=== PATIENT | male | born 1940 | race Caucasian/White ===

== ENCOUNTER → 2017-06-13 | Outpatient (CLI) | payer OTHER ==
[2017-06-13 12:38] LABS: ALT/SGPT 43 U/L (12-78); BLOOD UREA NITROGEN 18 mg/dl (7-18); BUN/CREATININE RATIO 14.2 (10-20); CALCIUM 9.1 mg/dl (8.5-10.1); CARBON DIOXIDE 29 mmol/L (21-32); CHLORIDE 104 mmol/L (98-107); CHOLESTEROL 105 mg/dl (0-200); GLUCOSE 97 mg/dl (70-99); POTASSIUM 4.1 mmol/L (3.5-5.1); SODIUM 139 mmol/L (136-145); TRIGLYCERIDES 78 mg/dl (0-150); VERY LOW DENSITY LIPOPROT CALC 16 mg/dl
[2017-06-13 12:45] LABS: ALB/GLOB RATIO 0.9 (0.9-2); ALKALINE PHOSPHATASE 59 U/L (45-117); AST/SGOT 29 U/L (15-37); CHOLESTEROL/HDL RATIO 2.3; HDL CHOLESTEROL 45 mg/dl; LDL CHOLESTEROL CALCULATED 44 mg/dl
== END | disposition home or self-care (01) ==
LOC: C.LABPVFM 10:04
PROVIDERS: ATTEND Family Medicine
DX: E78.5 Hyperlipidemia, unspecified (principal)

== ENCOUNTER 2018-05-11 10:16 | Inpatient (IN) | payer OTHER ==
[~2018-05-11] VITALS: Ht 172.7 cm; Wt 111.5 kg
[2018-05-11 10:51] LABS: BASO % 0.2 %; BASO ABS # 0.02 K/uL (0-0.2); EOS % 0.8 %; EOS ABS # 0.09 K/uL (0-0.5); HEMATOCRIT 45.2 % (42-52); HEMOGLOBIN 16.2 g/dL (14.0-18.0); IG# 0.12 K/uL (0.00-0.02); LYMPH % 8.9 %; LYMPH ABS # 1.02 K/uL (1.2-3.4); MEAN CELL VOLUME 90.6 fL (80-100); MEAN CORPUSCULAR HEMOGLOBIN 32.5 pg (25-34); MEAN CORPUSCULAR HGB CONC 35.8 g/dl (32-36); MONO % 7.3 %; MONO ABS # 0.84 K/uL (0.11-0.59); NEUT % 81.8 %; NEUT ABS # 9.43 K/uL (1.4-6.5); PLATELET COUNT 127 K/uL (130-400); RED CELL DISTRIBUTION WIDTH CV 13.1 % (11.5-14.5); RED CELL DISTRIBUTION WIDTH SD 43.1 fL (36.4-46.3); WHITE BLOOD COUNT 11.52 K/uL (4.8-10.8)
--- NOTE | 2018-05-11 10:59 | DIAGNOSTIC IMAGING REPORT ---
CHEST ONE VIEW PORTABLE CLINICAL HISTORY: CHEST PAIN dyspnea COMPARISON STUDY: No previous studies for comparison. FINDINGS: Mild cardiomegaly. Diaphragms smooth. Lungs are clear. IMPRESSION: Mild cardiomegaly. Otherwise negative study. The above report was generated using voice recognition software. It may contain grammatical, syntax or spelling errors. Electronically signed by: Roberto Cantor M.D. 05/11/2018 10:57 AM Dictated Date/Time: 05/11/2018 10:57 AM
[2018-05-11] MEDS ORDERED: ERGO2000 PO (11:11)
[2018-05-11] MEDS ORDERED: PRLSR20 PO (11:11)
[2018-05-11] MEDS ORDERED: LSN/10125 PO (11:11)
[2018-05-11] MEDS ORDERED: ATEN-173 PO (11:11)
[2018-05-11] MEDS ORDERED: PRAV20TA PO (11:11)
[2018-05-11] MEDS ORDERED: ASPI81TA28 PO (11:11)
[2018-05-11 11:28] LABS: CALCIUM 8.6 mg/dl (8.5-10.1); CREATININE 1.26 mg/dl (0.60-1.40); PHOSPHORUS 2.9 mg/dl (2.5-4.9); POTASSIUM 3.8 mmol/L (3.5-5.1); TOTAL PROTEIN 6.3 gm/dl (6.4-8.2)
[2018-05-11] MEDS ORDERED: MAGNESIUM SULFATE 1GM / D5W 1 GM BAG IV STA (11:53)
[2018-05-11] MEDS ORDERED: ASPIRIN 81 MG CHEW PO STA (12:46)
[2018-05-11 13:00] VITALS: O2SAT 95; Ht 172.7 cm; Wt 111.5 kg
[2018-05-11] MEDS ORDERED: CLOP1TAB5 PO (13:59)
[2018-05-11] MEDS ORDERED: MAGNESIUM HYDROXIDE SUSP 30 ML UDC PO PRN (14:00)
[2018-05-11] MEDS ORDERED: POLYETHYLENE (MIRALAX) 17 GM PACK PO PRN (14:00)
[2018-05-11] MEDS ORDERED: ALUMINUM/MAGNESIUM/SIMETH (MAALOX MAX) 30 ML UDC PO PRN (14:00)
[2018-05-11] MEDS ORDERED: ACETAMINOPHEN 325 MG TAB PO PRN (14:00)
[2018-05-11] MEDS ORDERED: ONDANSETRON INJ 2 MG/ML 2 ML VIAL IV PRN (14:00)
[2018-05-11] MEDS ORDERED: DILTIAZEM BOLUS / DRIP IV STA (14:02)
--- NOTE | 2018-05-11 14:16 | History and Physical ---
History & Physical Date & Time of Service: May 11, 2018 at 14:15 Chief Complaint: Cardiac Assessment Primary Care Physician: Dheeraj Kong M.D. History of Present Illness Source: patient Mr. Gamez is a 77 y/o male with PMHx of CAD S/P PCI x 3, Coronary Rupture/ Cardiac Arrest with Cath (2002), HTN, HLD, and GERD who presents to the ED from his PCP due to new onset A Flutter with RVR. Patient reports that his symptoms have been progressive over the past 1-2 weeks. He endorses SOB largely with exertion and extreme fatigue. He states he can only do small tasks before needing to stop to take a break. He has also noticed progressive b/l lower extremity edema and reporting his legs feeling like concrete and very heavy to try and walk. He states he noticed some chronic swelling but not this significant. He denies feelings of palpations or feeling like his heart was racing. He denies CP or dizziness/lightheadedness. At his PCP he was found to be in A Flutter and was transferred to the ED. He was given Diltiazem 15 mg x 1 dose enroute. His HR went from 140s to 90-100. He intermittently would go up to 120 after initiation. He is feeling well at rest. He reports he is currently being treating for possible clot in eye and stated his was on a blood thinner. Confirmed with his pharmacy with his permission that he was prescribed Plavix for this in addition to his ASA therapy. Past Medical/Surgical History 1. Atrial Flutter 2. CAD S/P PCI x 3 3. Coronary Rupture with Cath 4. Cardiac Arrest during Cath 5. HTN 6. HLD 7. GERD 8. S/P R Carotid Endarterectomy 9. S/P Cholecystectomy 10. Amaurosis fugax Family History Heart Disease Social History Smoking Status: Never Smoker Smokeless Tobacco Use: No Alcohol Use: none Drug Use: none Allergies Coded Allergies: No Known Allergies (Unverified , 05/11/18) Home Medications Scheduled Aspirin (Aspirin Ec), 162 MG PO DAILY Atenolol (Tenormin), 25 MG PO DAILY Clopidogrel Bisulfate (Plavix), 75 MG PO DAILY Ergocalciferol (Vitamin D), 2,000 UNITS PO DAILY Hctz/Lisinopril (Lisinopril/Hctz 10/12.5 Mg), 1 TAB PO DAILY Omeprazole (Prilosec), 20 MG PO DAILY Pravastatin (Pravachol ), 20 MG PO DAILY Review of Systems Constitutional: + weakness (generalized), + fatigue, No fever, No chills ENT: No nasal symptoms, No sore throat, No trouble swallowing Respiratory: + shortness of breath, + dyspnea on exertion, No cough Cardiovascular: No chest pain, No palpitations Abdomen: No pain, No nausea, No vomiting, No diarrhea, No constipation Musculoskeletal: + swelling (b/l lower extremities), No calf pain Genitourinary - Male: No dysuria Neurologic: No numbness/tingling Hematologic / Lymphatic: No abnormal bleeding/bruising Integumentary: No rash Physical Exam Vital Signs Date Time Temp Pulse Resp B/P (MAP) Pulse Ox O2 Delivery O2 Flow Rate FiO2 05/11/18 13:01 117 24 124/100 96 Nasal Cannula 2.0 05/11/18 12:01 99 17 150/97 95 Nasal Cannula 2.0 05/11/18 10:54 102 20 138/92 97 Nasal Cannula 2.0 05/11/18 10:31 93 Room Air 05/11/18 10:31 Nasal Cannula 2.0 05/11/18 10:26 104 22 94 05/11/18 10:23 108 05/11/18 10:22 37.3 104 18 128/91 93 Room Air 05/11/18 10:22 92 Room Air 05/11/18 10:20 128/91 General Appearance: WD/WN, no apparent distress Head: normocephalic, atraumatic Eyes: sclerae normal ENT: hearing grossly normal Neck: supple, no JVD, trachea midline Respiratory/Chest: no respiratory distress, no accessory muscle use, + crackles (minimal at bases b/l) Cardiovascular: no murmur, + tachycardia, + pertinent finding (regular rate) Abdomen/GI: normal bowel sounds, non tender, soft Extremities/Musculoskelatal: + swelling (1+ pitting more non-pitting) Neurologic/Psych: alert, oriented x 3 Skin: normal color, warm/dry Diagnostics Laboratory Results Results Past 24 Hours Test 05/11/18 10:27 05/11/18 13:59 Range/Units White Blood Count 11.52 4.8-10.8 K/uL Red Blood Count 4.99 4.7-6.1 M/uL Hemoglobin 16.2 14.0-18.0 g/dL Hematocrit 45.2 42-52 % Mean Corpuscular Volume 90.6 80-100 fL Mean Corpuscular Hemoglobin 32.5 25-34 pg Mean Corpuscular Hemoglobin Concent 35.8 32-36 g/dl Platelet Count 127 130-400 K/uL Mean Platelet Volume 10.0 7.4-10.4 fL Neutrophils (%) (Auto) 81.8 % Lymphocytes (%) (Auto) 8.9 % Monocytes (%) (Auto) 7.3 % Eosinophils (%) (Auto) 0.8 % Basophils (%) (Auto) 0.2 % Neutrophils # (Auto) 9.43 1.4-6.5 K/uL Lymphocytes # (Auto) 1.02 1.2-3.4 K/uL Monocytes # (Auto) 0.84 0.11-0.59 K/uL Eosinophils # (Auto) 0.09 0-0.5 K/uL Basophils # (Auto) 0.02 0-0.2 K/uL RDW Standard Deviation 43.1 36.4-46.3 fL RDW Coefficient of Variation 13.1 11.5-14.5 % Immature Granulocyte % (Auto) 1.0 % Immature Granulocyte # (Auto) 0.12 0.00-0.02 K/uL Prothrombin Time 10.6 9.0-12.0 SECONDS Prothromb Time International Ratio 1.0 0.9-1.1 Sodium Level 137 136-145 mmol/L Potassium Level 3.8 3.5-5.1 mmol/L Chloride Level 100 98-107 mmol/L Carbon Dioxide Level 32 21-32 mmol/L Anion Gap 5.0 3-11 mmol/L Blood Urea Nitrogen 19 7-18 mg/dl Creatinine 1.26 0.60-1.40 mg/dl Est Creatinine Clear Calc Drug Dose 63.7 ml/min Estimated GFR () 64.2 Estimated GFR (Non- 55.4 BUN/Creatinine Ratio 14.8 10-20 Random Glucose 106 70-99 mg/dl Calcium Level 8.6 8.5-10.1 mg/dl Phosphorus Level 2.9 2.5-4.9 mg/dl Magnesium Level 1.7 1.8-2.4 mg/dl Total Bilirubin 1.9 0.2-1 mg/dl Direct Bilirubin 0.4 0-0.2 mg/dl Aspartate Amino Transf (AST/SGOT) 23 15-37 U/L Alanine Aminotransferase (ALT/SGPT) 43 12-78 U/L Alkaline Phosphatase 48 45-117 U/L Troponin I 0.053 0-0.045 ng/ml Pro-B-Type Natriuretic Peptide 883 0-900 pg/ml Total Protein 6.3 6.4-8.2 gm/dl Albumin 3.0 3.4-5.0 gm/dl Lipase 69 73-393 U/L Chemistry Specimen Hemolysis Diagnostic Radiology CHEST ONE VIEW PORTABLE CLINICAL HISTORY: CHEST PAIN dyspnea COMPARISON STUDY: No previous studies for comparison. FINDINGS: Mild cardiomegaly. Diaphragms smooth. Lungs are clear. IMPRESSION: Mild cardiomegaly. Otherwise negative study. EKG Poor data quality, interpretation may be adversely affected Atrial flutter with 3:1 A-V conduction Inferior-posterior infarct , age undetermined Abnormal ECG No previous ECGs available Confirmed by Alfredo Grey ([id number]) on 05/11/2018 1:04:13 PM Impression Assessment and Plan Mr. Gamez is a 77 y/o male with PMHx of CAD S/P PCI x 3, Coronary Rupture/ Cardiac Arrest with Cath (2002), HTN, HLD, and GERD who presents to the ED from his PCP due to new onset A Flutter with RVR. New Onset Atrial Flutter with RVR: - HR with better control and largely asymptomatic at rest but very symptomatic with even minimal exertion - Currently utilizing Lopressor 25 mg Q6H for rate control - D/C Atenolol - Heparin gtt and bolus initiated - Obtain Echo - Consult cardiology - discussed with Dr. Wallis with plans as above - appreciate input B/L Lower Extremity Swelling: - U/S to assess for DVT - swelling may be multifactorial between venous insuffiency vs some CHF? - if DVT would be the cause luckily heparin gtt is currently in place CAD S/P PCI x 3 with HTN/HLD: - H/O coronary rupture with cardiac arrest due to this - Continue Plavix 75 mg daily and hold ASA 162 mg daily given heparin dose -- Apparently the Plavix is actually for a clot behind eye? retinal occlusion ? - Pravastatin 20 mg daily; Hold Atenolol and Lisinopril/HCTZ at this time but likely can resume at least Lisinopril/HCTZ if blood pressure can tolerate GERD: - Protonix 40 mg daily DVT Prophylaxis: Heparin Code Status: FULL RESUSCITATION Disposition: Can likely have NOAC and will need co-pay checked Advanced Directives Existing Living Will: No Existing Power of Storeroom Supervisor: No Resuscitation Status VTE Prophylaxis Will order VTE Prophylaxis: Yes Reviewed: Pt Seen/Exam by Me History Physician Psychologist Private Practice supervision Note: I interviewed and examined the patient. Discussed with PRESTON Zuñiga and agree with findings and plan as documented in the note. Any exceptions or clarifications are listed here: Patient presented with worsening shortness of breath and heavy feeling in his legs with significant aching in the bilateral lower extremities for 1-2 weeks. He is also noted increase swelling in the legs. He denies any chest pain or heart palpitations. He was found to be in rapid atrial flutter at his PCPs office and was sent by ambulance to the hospital. In the ambulance, he was treated with IV diltiazem, by the time he got to the ER, his rates were improved from the 160s down to the 120s. Other history reviewed as above. Reviewed his outpatient record-I cannot find notes from his electrification adviser, however his vascular surgeon reports suspected amaurosis fugax bilaterally. He was placed on Plavix in addition to his aspirin fairly recently. Patient also reports that he has been on chronic prednisone for at least a month as prescribed by his electrification adviser. He is unsure of the dose and for how long he has been taking it. His will call [facility] after she gets home to tell us the dose. Vitals reviewed Gen: AAOx3, NAD HEENT: anicteric sclerae, EOMI CV: Irregularly irregular no mgr nl S1S2 Pulm: Positive bibasilar crackles, otherwise clear Abd: +BS soft NT ND no masses or hernias Ext: 1+ pitting edema of the legs to the knees bilaterally, 2+ DP pulses Skin: no rashes, warm/dry Neuro: full strength throughout Initial troponin is mildly elevated, he is in atrial flutter with rates in the 130s with a 3-1 conduction block on ECG. ProBNP was not significantly elevated , chest x-ray with cardiomegaly Patient is a 77-year-old male with history as above, here with rapid atrial flutter new in onset, acute on chronic diastolic CHF, and elevated troponin which is likely secondary to myocardial demand ischemia in the setting of rapid atrial flutter. Acute on chronic diastolic CHF likely secondary to tachyarrhythmia. -Seen by cardiology and diltiazem drip was stopped, started on metoprolol 25 mg p.o. every 6 hours for rate control strategy -Started on heparin drip and patient is interested in going on Eliquis-will need cost check with case management before discharge -We will start him back on HCTZ but a higher dose than his home dose of 25 mg in the morning given his lower extremity edema-this should improve with rate control as well -Appreciate cardiology consultation -Trending troponin, no wall motion abnormalities on echocardiogram, consistent with myocardial demand ischemia Documented By: Marcy De Santiago
--- NOTE | 2018-05-11 14:30 | EMERGENCY ROOM VISIT NOTE ---
History Report prepared by Jo: Robyn Serrato Under the Supervision of: Dr. Lazaro Navas M.D. First contact with patient: 10:22 Chief Complaint: CARDIAC ASSESSMENT Stated Complaint: CARDIAC ASSESSMENT Nursing Triage Summary: Pt. went to [facility] today due to noticing increased swelling in his legs/ankles and pressure behind his eyes for a few days. He denies CP, he does have some SOB. 93 RA. He has noticed that he has trouble with exertion more often recently. History of Present Illness The patient is a 77 year old male who presents to the Emergency Room with complaints of persistent SOB starting 1-2 weeks ago. The patient presents to the ED by EMS. He went to a clinic today with leg swelling and was sent to the ED. His SOB worsened yesterday. He is normally not on oxygen. He is having cramping in his right leg. His feet have felt cold. He has had some headache. He denies any abdominal bloating. 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 His vision has been cloudy which is unchanged. He has a history of stents. He is not on a water pill. Source of History: patient Onset: 1-2 weeks ago Position: chest Quality: other (SOB) Timing: worsening Associated Symptoms: + headache Note: Pt reports leg pain and swelling. Review of Systems See HPI for pertinent positives and negatives. A total of ten systems were reviewed and were otherwise negative. Past Medical & Surgical Medical Problems: (1) Atrial flutter with rapid ventricular response Family History Noncontributory secondary to age Social History Marital Status: single Occupation Status: retired Current/Historical Medications Scheduled Aspirin (Aspirin Ec), 162 MG PO DAILY Atenolol (Tenormin), 25 MG PO DAILY Clopidogrel Bisulfate (Plavix), 75 MG PO DAILY Ergocalciferol (Vitamin D), 2,000 UNITS PO DAILY Hctz/Lisinopril (Lisinopril/Hctz 10/12.5 Mg), 1 TAB PO DAILY Omeprazole (Prilosec), 20 MG PO DAILY Pravastatin (Pravachol ), 20 MG PO DAILY Allergies Coded Allergies: No Known Allergies (Unverified , 05/11/18) Physical Exam Vital Signs Date Time Temp Pulse Resp B/P (MAP) Pulse Ox O2 Delivery O2 Flow Rate FiO2 05/11/18 13:57 106 24 145/96 96 Nasal Cannula 2.0 05/11/18 13:01 117 24 124/100 96 Nasal Cannula 2.0 05/11/18 13:00 95 Nasal Cannula 2.0 05/11/18 12:01 99 17 150/97 95 Nasal Cannula 2.0 05/11/18 10:54 102 20 138/92 97 Nasal Cannula 2.0 05/11/18 10:31 93 Room Air 05/11/18 10:31 Nasal Cannula 2.0 05/11/18 10:26 104 22 94 05/11/18 10:23 108 05/11/18 10:22 37.3 104 18 128/91 93 Room Air 05/11/18 10:22 92 Room Air 05/11/18 10:20 128/91 Physical Exam GENERAL: Awake, alert, fatigued-appearing, in no distress HENT: Normocephalic, atraumatic. Oropharynx unremarkable. Mucous membranes are dry. EYES: Normal conjunctiva. Sclera non-icteric. NECK: Supple. No nuchal rigidity. FROM. No JVD. RESPIRATORY: Diminished breath sounds throughout. CARDIAC: Tachycardic rate, regular rhythm. Extremities warm and well perfused. Pulses equal. ABDOMEN: Obese, but soft. Non-distended. No tenderness to palpation. No rebound or guarding. No masses. RECTAL: Deferred. MUSCULOSKELETAL: Chest examination reveals no tenderness. The back is symmetrical on inspection without obvious abnormality. There is no CVA tenderness to palpation. No joint edema. LOWER EXTREMITIES: Calves are equal size bilaterally and non-tender. Scant edema. No discoloration. NEURO: Normal sensorium. No sensory or motor deficits noted. SKIN: No rash or jaundice noted. Medical Decision & Procedures ER Provider Diagnostic Interpretation: Radiology results as stated below per my review and radiologist interpretation: CHEST ONE VIEW PORTABLE CLINICAL HISTORY: CHEST PAIN dyspnea COMPARISON STUDY: No previous studies for comparison. FINDINGS: Mild cardiomegaly. Diaphragms smooth. Lungs are clear. IMPRESSION: Mild cardiomegaly. Otherwise negative study. The above report was generated using voice recognition software. It may contain grammatical, syntax or spelling errors. Electronically signed by: Roberto Cantor M.D. 05/11/2018 10:57 AM Dictated Date/Time: 05/11/2018 10:57 AM Laboratory Results 7/20/18 10:27 Red Blood Count 4.99, Mean Corpuscular Volume 90.6, Mean Corpuscular Hemoglobin 32.5, Mean Corpuscular Hemoglobin Concent 35.8, Mean Platelet Volume 10.0, Neutrophils (%) (Auto) 81.8, Lymphocytes (%) (Auto) 8.9, Monocytes (%) (Auto) 7.3, Eosinophils (%) (Auto) 0.8, Basophils (%) (Auto) 0.2, Neutrophils # (Auto) 9.43, Lymphocytes # (Auto) 1.02, Monocytes # (Auto) 0.84, Eosinophils # (Auto) 0.09, Basophils # (Auto) 0.02 05/11/18 10:27 Test 05/11/18 10:27 White Blood Count 11.52 K/uL (4.8-10.8) Red Blood Count 4.99 M/uL (4.7-6.1) Hemoglobin 16.2 g/dL (14.0-18.0) Hematocrit 45.2 % (42-52) Mean Corpuscular Volume 90.6 fL (80-100) Mean Corpuscular Hemoglobin 32.5 pg (25-34) Mean Corpuscular Hemoglobin Concent 35.8 g/dl (32-36) Platelet Count 127 K/uL (130-400) Mean Platelet Volume 10.0 fL (7.4-10.4) Neutrophils (%) (Auto) 81.8 % Lymphocytes (%) (Auto) 8.9 % Monocytes (%) (Auto) 7.3 % Eosinophils (%) (Auto) 0.8 % Basophils (%) (Auto) 0.2 % Neutrophils # (Auto) 9.43 K/uL (1.4-6.5) Lymphocytes # (Auto) 1.02 K/uL (1.2-3.4) Monocytes # (Auto) 0.84 K/uL (0.11-0.59) Eosinophils # (Auto) 0.09 K/uL (0-0.5) Basophils # (Auto) 0.02 K/uL (0-0.2) RDW Standard Deviation 43.1 fL (36.4-46.3) RDW Coefficient of Variation 13.1 % (11.5-14.5) Immature Granulocyte % (Auto) 1.0 % Immature Granulocyte # (Auto) 0.12 K/uL (0.00-0.02) Prothrombin Time 10.6 SECONDS (9.0-12.0) Prothromb Time International Ratio 1.0 (0.9-1.1) Activated Partial Thromboplast Time 26.1 SECONDS (21.0-31.0) Partial Thromboplastin Ratio 1.0 Anion Gap 5.0 mmol/L (3-11) Est Creatinine Clear Calc Drug Dose 63.7 ml/min Estimated GFR () 64.2 Estimated GFR (Non- 55.4 BUN/Creatinine Ratio 14.8 (10-20) Calcium Level 8.6 mg/dl (8.5-10.1) Phosphorus Level 2.9 mg/dl (2.5-4.9) Magnesium Level 1.7 mg/dl (1.8-2.4) Total Bilirubin 1.9 mg/dl (0.2-1) Direct Bilirubin 0.4 mg/dl (0-0.2) Aspartate Amino Transf (AST/SGOT) 23 U/L (15-37) Alanine Aminotransferase (ALT/SGPT) 43 U/L (12-78) Alkaline Phosphatase 48 U/L (45-117) Pro-B-Type Natriuretic Peptide 883 pg/ml (0-900) Total Protein 6.3 gm/dl (6.4-8.2) Albumin 3.0 gm/dl (3.4-5.0) Lipase 69 U/L (73-393) Chemistry Specimen Hemolysis Laboratory results reviewed by me Medications Administered Medications (Trade) Dose Ordered Sig/[place] Route Start Time Stop Time Status Last Admin Dose Admin Magnesium Sulfate (Magnesium Sulfate 1gm / D5W) 2 gm NOW STAT IV 05/11/18 11:53 05/11/18 11:54 DC 05/11/18 12:00 2 GM Aspirin (Aspirin Chew) 162 mg NOW STAT PO 05/11/18 12:46 05/11/18 12:48 DC 05/11/18 12:59 162 MG ECG Per My Interpretation Indication: SOB/dyspnea Rate (beats per minute): 98 Rhythm: atrial flutter Findings: no acute ischemic change, other (normal axis) ED Course 1029: The patient was evaluated in room A12B. A complete history and physical exam was performed. 1248: I discussed the patient with MAGED Wiseman hospitalist - She will evaluate the patient for further treatment. 1255: Upon reexamination, the patient was resting comfortably. I discussed the test results and treatment plan with him. The patient will be evaluated for further management. Medical Decision I reviewed the patient's past medical history, medications, and the nursing notes as described above. Etiologies such as pneumonia, COPD, reactive airway disease, CHF, cardiac ischemia, pulmonary embolism, pneumothorax, musculoskeletal, infections, gastrointestinal, as well as others were entertained. The patient is a 77-year-old gentleman who presents emergency department from [facility] for evaluation of increasing dyspnea on exertion found to be a new a flutter by EMS in the 140s improved to 100s after diltiazem by EMS per hpi. On arrival the patient is fatigued appearing but no acute distress, afebrile stable vital signs. EKG demonstrates new a flutter 3:1 conduction without evidence of acute ischemia. Chest x-ray negative. WBC 11.5 nonspecific. Creatinine 1.26 without prior values for comparison. Magnesium 1.7, repleted. Troponin 0.53 again without prior values for comparison however given the patient's long-standing symptoms likely demand related to a flutter. Otherwise, BNP within normal limits. Given the patient's comorbidities in the setting of new onset a flutter with RVR with troponin elevation reasonable to admit the patient for further evaluation. I discussed with the patient that given his comorbidities and his new onset atrial flutter he should be anticoagulated. However, the patient reports that he is currently on a blood thinner but does not know which one. I reviewed his medications and there is no blood thinner listed. However, will defer decision for type of anticoagulation to admitting team. Patient agreeable for admission. Case was discussed with KIMBERLY Mayberry hospitalist, will will evaluate the patient for admission. Medication Reconcilliation Current Medication List: was personally reviewed by me Blood Pressure Screening Patient's blood pressure: Elevated blood pressure Referred to hospitalist Consults Time Called: 1246 Consulting Physician: MAGED Wiseman hospitalist Returned Call: 1248 I discussed the patient with her - She will evaluate the patient for further treatment. Impression Primary Impression: Atrial flutter Additional Impression: Elevated troponin Scribe Attestation The scribe's documentation has been prepared under my direction and personally reviewed by me in its entirety. I confirm that the note above accurately reflects all work, treatment, procedures, and medical decision making performed by me. Departure Information Dispostion Being Evaluated By Hospitalist Referrals Bharat Guerrero M.D. (PCP) Patient Instructions My [facility] Problem Qualifiers
[2018-05-11] MEDS ORDERED: HEPARIN 25000 UNIT/500 ML D5W ONE (14:37)
[2018-05-11] MEDS ORDERED: HEPARIN SOD (PORCINE) 1000 UNIT/ML 10 ML VIAL ONE (14:37)
[2018-05-11] MEDS ORDERED: METOPROLOL TARTRATE 1 MG/ML VIAL IV STA (15:09)
[2018-05-11] MEDS ORDERED: DILTIAZEM HCL INJ 125 MG in DEXTROSE 5% 100ML IV PRN (15:15)
[2018-05-11] MEDS ORDERED: DILTIAZEM HCL 5 MG/ML 5 ML VIAL BOLUS/OMNI IV SCH (15:15)
--- NOTE | 2018-05-11 15:40 | ECHOCARDIOGRAM REPORT ---
*NOTICE TO RECEIVING LIBERTARIAN AGENCY This information is strictly Confidential and protected under [place] law. [place] law prohibits you from making any further disclosure of this information unless further disclosure is expressly permitted by the written consent of the person to whom it pertains or is authorized by law. A general authorization for the release of medical or other information is not sufficient for this purpose. Hospital accepts no responsibility if the information is made available to any other person, INCLUDING THE PATIENT. Interpretation Summary * Name: LORIE CAMPBELL Study Date: 05/11/2018 02:25 PM BP: 145/96 mmHg * Patient Location: [facility] HR: 101 * : 1940 (M/d/yyyy) Gender: Male Height: 68 in * Age: 77 yrs Ethnicity: [place] Weight: 263 lb * Ordering Physician: Mary Alice Zuñiga * Referring Physician: Emerald Mauro * Performed By: Montse Borja RDCS * * Reason For Study: A-Flutter * BSA: 2.3 m2 * -- Conclusions -- * Normal LV chamber size with mild concentric LVH. * Normal LV systolic function, EF 55-60%. * No segmental left ventricular wall motion abnormalities are noted. * Grade II diastolic dysfunction. * Aortic valve sclerosis mild, without significant aortic valvular stenosis. Procedure Details * A complete two-dimensional transthoracic echocardiogram was performed (2D, M-mode, Doppler and color flow Doppler). Left Ventricle * The left ventricle is normal in size. * There is mild concentric left ventricular hypertrophy. * Ejection Fraction = 55-60%. * Left ventricular systolic function is normal. * No segmental left ventricular wall motion abnormalities are noted. * The left ventricular wall motion is normal. Right Ventricle * The right ventricular cavity size is normal (basal dimension <4.2 cm in right ventricular apical 4-chamber view). * The right ventricular systolic function is normal as assessed by tricuspid annular plane systolic excursion (TAPSE) (normal >1.5 cm). Atria * The left atrium is not well visualized. * Right atrium not well visualized. Mitral Valve * The mitral valve is normal in structure and function. Tricuspid Valve * The tricuspid valve is normal in structure and function. Aortic Valve * The aortic valve is trileaflet. * Aortic valve sclerosis mild, without significant aortic valvular stenosis. * There is no significant aortic regurgitation. Pulmonic Valve * The pulmonary valve is not well seen, but the Doppler examination is normal without significant regurgitation or stenosis. Great Vessels * The aortic root is normal size. Pericardium/Pleural * There is no pericardial effusion. Left Ventricular Diastolic Function * Diastolic dysfunction, Grade II (pseudonormalization pattern). MMode 2D Measurements and Calculations IVSd 0.98 cm LVIDd 3.5 cm LVIDs 2.5 cm LVPWd 0.93 cm IVS/LVPW 1.1 FS 28.8 % EDV(Teich) 50.3 ml ESV(Teich) 21.9 ml EF(Teich) 56.5 % EDV(cubed) 42.3 ml ESV(cubed) 15.3 ml EF(cubed) 63.9 % LV mass(C)d 96.3 grams LV mass(C)dI 41.9 grams/m\S\2 SV(Teich) 28.4 ml SI(Teich) 12.4 ml/m\S\2 SV(cubed) 27.0 ml SI(cubed) 11.8 ml/m\S\2 Ao root diam 3.5 cm Ao root area 9.9 cm\S\2 LVOT diam 2.0 cm LVOT area 3.2 cm\S\2 LVAd ap4 21.0 cm\S\2 LVLd ap4 6.3 cm EDV(MOD-sp4) 55.9 ml EDV(sp4-el) 59.2 ml LVAs ap4 13.4 cm\S\2 LVLs ap4 5.5 cm ESV(MOD-sp4) 27.3 ml ESV(sp4-el) 27.7 ml EF(MOD-sp4) 51.1 % EF(sp4-el) 53.2 % LVAd ap2 20.3 cm\S\2 LVLd ap2 6.7 cm EDV(MOD-sp2) 49.1 ml EDV(sp2-el) 51.6 ml LVAs ap2 11.9 cm\S\2 LVLs ap2 5.2 cm ESV(MOD-sp2) 23.2 ml ESV(sp2-el) 23.2 ml EF(MOD-sp2) 52.7 % EF(sp2-el) 55.1 % LVLd %diff 6.0 % EDV(MOD-bp) 54.3 ml LVLs %diff -5.59 % ESV(MOD-bp) 26.0 ml EF(MOD-bp) 52.1 % SV(MOD-sp4) 28.6 ml SI(MOD-sp4) 12.4 ml/m\S\2 SV(MOD-sp2) 25.9 ml SI(MOD-sp2) 11.3 ml/m\S\2 SV(MOD-bp) 28.3 ml SI(MOD-bp) 12.3 ml/m\S\2 SV(sp4-el) 31.5 ml SI(sp4-el) 13.7 ml/m\S\2 SV(sp2-el) 28.4 ml SI(sp2-el) 12.4 ml/m\S\2 Doppler Measurements and Calculations MV E max denny 102.5 cm/sec MV A max denny 38.3 cm/sec MV E/A 2.7 MV dec time 0.12 sec Ao V2 max 83.5 cm/sec Ao max PG 2.8 mmHg Ao max PG (full) 0.03 mmHg SAJAN(V,A) 3.2 cm\S\2 SAJAN(V,D) 3.2 cm\S\2 LV V1 max PG 2.8 mmHg LV V1 max 83.0 cm/sec PA V2 max 73.3 cm/sec PA max PG 2.2 mmHg PA acc slope 402.0 cm/sec\S\2 PA acc time 0.14 sec TR max denny 243.7 cm/sec PA pr(Accel) 14.4 mmHg
[2018-05-11 15:52] LABS: PTT PATIENT 26.1 SECONDS (21.0-31.0)
--- NOTE | 2018-05-11 16:14 | CARDIOLOGY CONSULTATION ---
DATE OF CONSULTATION: 05/11/2018 CONSULTATION REQUESTED BY: Mary Alice Zuñiga PA-C. REASON FOR CONSULTATION: New onset atrial flutter. HISTORY OF PRESENT ILLNESS: Mr. Gamez is a very pleasant 77-year-old gentleman who normally follows with Dr. Sullivan of our cardiology practice. He presented to [facility] on 05/11/2018 straight from his primary care physician's office today via EMS. The patient presented there with a complaint of shortness of breath for the last approximately a [id number] to 2 weeks, which he describes dyspnea on exertion. At the same time, he has been having bilateral lower extremity edema. When he presented to the clinic today, he was found to be in atrial fibrillation with rapid ventricular response and he was transferred to [facility] Emergency [facility]. Upon arrival, he was confirmed to be in atrial fibrillation and was given, I believe, IV Cardizem, his rates are now around 100, in 3:1 conduction. Currently, the patient states he is feeling much better now at rest. He states that for the last 2 weeks now, he has been dyspneic, but he has also been very, very tired and run down, just not having the energy to do much at all, but he denies experiencing any chest pain, palpitations, lightheadedness, dizziness, or syncope. He states that since he received medicine in the ER, he notices his strength level seemed to increase. PAST SURGICAL HISTORY: 1. PCI to the circumflex in 2002, complicated by cardiac arrest and coronary perforation. 2. Repeat cardiac catheterization in 2016, which revealed narrow caliber coronary arteries with a patent stent in the proximal circumflex and stent to the RCA with a chronic total occlusion of the RCA. 3. Colonoscopy. 4. Carotid endarterectomy. 5. Cholecystectomy. 6. Tonsillectomy as a child. MEDICAL ILLNESSES: 1. Coronary artery disease. 2. History of cardiac arrest in the setting of coronary perforation during cardiac catheterization. 3. 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 4. Hypertension. 5. Hyperlipidemia. 6. Recent ocular CVA. 7. History of TIA. FAMILY HISTORY: Noncontributory. SOCIAL HISTORY: Denies any alcohol, tobacco or recreational drug use. He is and lives at home with his . He is retired. REVIEW OF SYSTEMS: As per HPI. All other review of systems reviewed and negative at this time. ALLERGIES: No known drug allergies. MEDICATIONS AN OUTPATIENT: 1. Aspirin 162 mg daily. 2. Plavix 75 mg daily. 3. Atenolol 25 mg daily. 4. Lisinopril/hydrochlorothiazide 10/12.5 mg daily. 5. Pravastatin 20 mg daily. 6. Omeprazole daily. PHYSICAL EXAMINATION: VITAL SIGNS: Temperature 37.3, pulse 106, respiratory rate 12, blood pressure 145/96. GENERAL: Awake, alert, oriented x3, in no acute distress. HEENT: Normocephalic, atraumatic. Pupils equal, round, and reactive to light and accommodation. Extraocular muscles intact. Anicteric sclerae. Moist mucous membranes. NECK: No JVD, no bruit. CARDIOVASCULAR: Regular, but fast. Unable to appreciate murmurs, rubs or gallops. PULMONARY: Clear to auscultation bilaterally. No rales, rhonchi, or wheezing. ABDOMEN: Bowel sounds x4, soft. No rebound, guarding, tenderness. No organomegaly. EXTREMITIES: Trace bilateral lower extremity nonpitting edema. No clubbing or cyanosis. +2 pedal pulses bilaterally. SKIN: Warm and dry. TEST RESULTS: A 12-lead EKG performed in the Emergency Department independently reviewed at this time shows atrial flutter with 3:1 AV conduction at 98 beats per minute. A 2D echocardiogram was read as normal LV chamber size with mild concentric LVH, normal LV systolic function, EF 55-60% without regional wall motion abnormalities, grade 2 diastolic dysfunction, mild aortic valve sclerosis without stenosis. Left atrium was not well visualized. IMPRESSION: 1. New onset atrial flutter with 3:1 conduction. 2. CHADS score of 4. 3. Hypertension. 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 5. Carotid stenosis, status post endarterectomy. RECOMMENDATIONS: It was my pleasure to see Mr. Gamez in consultation today. The patient is obviously experiencing symptomatic atrial flutter, and with his rate at 100 beats per minute, I believe it would be prudent to try and see if he can better rate control with beta veronique, so I will give him 5 mg of IV Lopressor now and start him on metoprolol tartrate 25 mg p.o. q. 6 hours. At the same time, a heparin drip will be started and given the fact that he has been in atrial flutter, likely for at least 2 weeks now. No antiarrhythmics will be started for fear of possible cardioversion and cardioembolic event. I did have a long discussion with the patient in terms of preferred long-term anticoagulation. He states that he believes at this time he preferred Eliquis over Coumadin, but again heparin will be started at this time to make sure he has no significant bleeding with full-dose anticoagulation first. Otherwise, the patient will be monitored on telemetry and consideration for rate versus rhythm control will be based on the patient's response to rate control therapy. Otherwise, in terms of his antiplatelet therapy, his aspirin will be discontinued, I will be continued on his Plavix along with full-dose anticoagulation.
[2018-05-11 16:20] VITALS: BP 123/84; PULSE 91; TEMP 36.4; O2SAT 93
[2018-05-11] MEDS: HEPARIN 25,000 UNIT/500ML D5W 500 ML IV SCH (16:30)
[2018-05-11 16:34] VITALS: O2SAT 96
[2018-05-11] MEDS ORDERED: NURSING VERBAL MED ORDER ONE (17:00)
[2018-05-11] MEDS: METOPROLOL TARTRATE 25 MG TAB PO SCH (17:44)
[2018-05-11 20:03] VITALS: BP 148/94; PULSE 104; TEMP 36.7; O2SAT 95
[2018-05-11] MEDS ORDERED: POTASSIUM CHLORIDE 20 MEQ TABCR PO ONE (21:00)
--- NOTE | 2018-05-11 22:11 | DIAGNOSTIC IMAGING REPORT ---
BILATERAL LOWER EXTREMITY VENOUS DOPPLER HISTORY: Bilateral lower extremity Pain/Swelling - R/O DVT COMPARISON STUDY: None. FINDINGS: There is normal compressibility, flow, and augmentation within the bilateral lower extremity deep venous systems. IMPRESSION: No DVT within the right or left lower extremity. Electronically signed by: Tramaine Payton M.D. 05/11/2018 10:09 PM Dictated Date/Time: 05/11/2018 10:09 PM
[2018-05-11 23:03] LABS: PTT PATIENT 93.3 SECONDS (21.0-31.0)
[2018-05-12 00:08] VITALS: BP 118/67; PULSE 109; TEMP 37.1; O2SAT 97
[2018-05-12] MEDS: METOPROLOL TARTRATE 25 MG TAB PO SCH ×4 (00:25→17:04)
[2018-05-12 03:40] VITALS: BP 114/72; PULSE 82; TEMP 36.9; O2SAT 93
[2018-05-12 06:16] LABS: HEMATOCRIT 44.1 % (42-52); HEMOGLOBIN 16.1 g/dL (14.0-18.0); MEAN CELL VOLUME 88.9 fL (80-100); MEAN CORPUSCULAR HEMOGLOBIN 32.5 pg (25-34); MEAN CORPUSCULAR HGB CONC 36.5 g/dl (32-36); PLATELET COUNT 118 K/uL (130-400); RED CELL DISTRIBUTION WIDTH CV 12.8 % (11.5-14.5); RED CELL DISTRIBUTION WIDTH SD 41.6 fL (36.4-46.3); WHITE BLOOD COUNT 9.78 K/uL (4.8-10.8)
[2018-05-12 06:36] LABS: PTT PATIENT 65.8 SECONDS (21.0-31.0)
[2018-05-12 06:47] LABS: CALCIUM 8.1 mg/dl (8.5-10.1); CREATININE 1.06 mg/dl (0.60-1.40)
[2018-05-12 06:54] VITALS: BP 136/83; PULSE 104; TEMP 36.4; O2SAT 94
[2018-05-12] MEDS: PANTOprazole SOD 40 MG TAB PO SCH (07:40)
[2018-05-12] MEDS: CLOPIDOGREL BISULFATE 75 MG TAB PO SCH (07:40)
[2018-05-12] MEDS: CHOLECALCIFEROL 1000 INTER.UNIT TAB PO SCH (07:40)
[2018-05-12] MEDS: PRAVASTATIN SOD 20 MG TAB PO SCH (07:40)
[2018-05-12] MEDS: HYDROCHLOROTHIAZIDE 25 MG TAB PO SCH (07:41)
[2018-05-12] MEDS: HEPARIN 25,000 UNIT/500ML D5W 500 ML IV SCH (09:19)
[2018-05-12] MEDS ORDERED: APIXABAN 2.5 MG TAB PO ONE (10:45)
--- NOTE | 2018-05-12 10:49 | Cardiology Follow-Up ---
Subjective Subjective Date of Service: May 12, 2018. Pt evaluation today including: conversation w/ patient, physical exam, chart review, lab review, review of studies, review of inpatient medication list Additional Details: The patient continues to be in atrial flutter. Previously options regarding long-term anticoagulation were presented to the patient along with the risks and benefits of anticoagulation. He would like to be started on Eliquis. Also , I discussed today immediate cardioversion with DON guidance versus waiting several weeks for a return electively to have a cardioversion. The patient is considering his options. Problem List Medical Problems: (1) Atrial flutter Status: Acute (2) Elevated troponin Status: Acute Objective Vital Signs Last Vital Signs Documentation Date Time Temp Pulse Resp B/P (MAP) Pulse Ox O2 Delivery O2 Flow Rate FiO2 05/12/18 07:30 Room Air 05/12/18 06:54 36.4 104 20 136/83 (100) 94 05/11/18 13:57 2.0 Physical Exam: General Appearance: WD/WN, no apparent distress ENT: normal ENT inspection Neck: supple, no adenopathy, thyroid normal Respiratory/Chest: chest non-tender, lungs clear, normal breath sounds, no respiratory distress Cardiovascular: no edema, no murmur, + irregularly irregular Abdomen: normal bowel sounds, non tender, soft Extremities: non-tender, normal inspection, no pedal edema Neurologic/Psychiatric: no motor/sensory deficits, alert, oriented x 3 Skin: normal color, warm/dry, no rash Lymphatic: no adenopathy Assessment and Plan IMPRESSION: 1. New onset atrial flutter with 3:1 conduction. 2. CHADS score of 4. 3. Hypertension. 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 5. Carotid stenosis, status post endarterectomy. Medications: Current Inpatient Medications Medications (Trade) Dose Ordered Sig/[place] Route Start Time Stop Time Status Last Admin Dose Admin Acetaminophen (Tylenol Tab) 650 mg Q4H PRN PO 05/11/18 14:00 06/10/18 13:59 Al Hydrox/Mg Hydrox/Simethicone (Maalox Max Susp) 15 ml Q4H PRN PO 05/11/18 14:00 06/10/18 13:59 Magnesium Hydroxide (Milk Of Magnesia Susp) 30 ml Q12H PRN PO 05/11/18 14:00 06/10/18 13:59 Ondansetron HCl (Zofran Inj) 4 mg Q6H PRN IV 05/11/18 14:00 06/10/18 13:59 Polyethylene (Miralax Powder Packet) 17 gm DAILY PRN PO 05/11/18 14:00 06/10/18 13:59 Clopidogrel Bisulfate (plAVix TAB) 75 mg DAILY PO 05/12/18 09:00 06/11/18 08:59 05/12/18 07:40 75 MG Pravastatin Sodium (Pravachol Tab) 20 mg DAILY PO 05/12/18 09:00 06/11/18 08:59 05/12/18 07:40 20 MG Cholecalciferol (Vitamin D Tab) 2,000 inter.unit DAILY PO 05/12/18 09:00 06/11/18 08:59 05/12/18 07:40 2,000 INTER.UNIT Pantoprazole Sodium (Protonix Tab) 40 mg QAM PO 05/12/18 09:00 06/11/18 08:59 05/12/18 07:40 40 MG Metoprolol Tartrate (Lopressor Tab) 25 mg Q6 PO 05/11/18 18:00 06/10/18 17:59 05/12/18 05:49 25 MG Heparin Sodium/ Dextrose 500 ml @ 28 mls/hr [id number] IV 05/11/18 15:30 06/10/18 15:29 05/12/18 09:19 28 MLS/HR Hydrochlorothiazide (Hydrochlorothiazide Tab) 25 mg QAM PO 05/12/18 09:00 06/11/18 08:59 05/12/18 07:41 25 MG Lab Results: Last 24 Hours Test 05/11/18 16:31 05/11/18 22:13 05/12/18 05:58 Troponin I 0.066 ng/ml 0.046 ng/ml Thyroid Stimulating Hormone (TSH) 1.060 uIu/ml Activated Partial Thromboplast Time 93.3 SECONDS 65.8 SECONDS Partial Thromboplastin Ratio 3.6 2.5 White Blood Count 9.78 K/uL Red Blood Count 4.96 M/uL Hemoglobin 16.1 g/dL Hematocrit 44.1 % Mean Corpuscular Volume 88.9 fL Mean Corpuscular Hemoglobin 32.5 pg Mean Corpuscular Hemoglobin Concent 36.5 g/dl RDW Standard Deviation 41.6 fL RDW Coefficient of Variation 12.8 % Platelet Count 118 K/uL Mean Platelet Volume 10.0 fL Sodium Level 135 mmol/L Potassium Level 4.0 mmol/L Chloride Level 101 mmol/L Carbon Dioxide Level 25 mmol/L Anion Gap 9.0 mmol/L Blood Urea Nitrogen 19 mg/dl Creatinine 1.06 mg/dl Est Creatinine Clear Calc Drug Dose 74.0 ml/min Estimated GFR () 79.2 Estimated GFR (Non- 68.3 BUN/Creatinine Ratio 18.1 Random Glucose 130 mg/dl Calcium Level 8.1 mg/dl Magnesium Level 2.1 mg/dl
[2018-05-12 16:12] VITALS: BP 125/92; PULSE 102; TEMP 36.8; O2SAT 94
[2018-05-12 19:33] VITALS: BP 128/82; PULSE 97; TEMP 37.2; O2SAT 99
[2018-05-12] MEDS: APIXABAN 2.5 MG TAB PO SCH (20:48)
[2018-05-12 23:38] VITALS: BP 130/90; PULSE 106; TEMP 36.8; O2SAT 93
[2018-05-13] MEDS: METOPROLOL TARTRATE 25 MG TAB PO SCH ×5 (00:51→21:38)
[2018-05-13 03:35] VITALS: BP 116/68; PULSE 99; TEMP 37; O2SAT 94
[2018-05-13 07:10] LABS: HEMATOCRIT 46.9 % (42-52); HEMOGLOBIN 16.4 g/dL (14.0-18.0); MEAN CORPUSCULAR HEMOGLOBIN 31.1 pg (25-34); MEAN PLATELET VOLUME 10.3 fL (7.4-10.4); PLATELET COUNT 130 K/uL (130-400); RED CELL DISTRIBUTION WIDTH CV 12.6 % (11.5-14.5); RED CELL DISTRIBUTION WIDTH SD 40.6 fL (36.4-46.3); WHITE BLOOD COUNT 9.42 K/uL (4.8-10.8)
[2018-05-13] MEDS: APIXABAN 2.5 MG TAB PO SCH ×2 (07:42→21:38)
[2018-05-13] MEDS: PRAVASTATIN SOD 20 MG TAB PO SCH (07:43)
[2018-05-13] MEDS: PANTOprazole SOD 40 MG TAB PO SCH (07:43)
[2018-05-13] MEDS: HYDROCHLOROTHIAZIDE 25 MG TAB PO SCH (07:43)
[2018-05-13] MEDS: CLOPIDOGREL BISULFATE 75 MG TAB PO SCH (07:43)
[2018-05-13] MEDS: CHOLECALCIFEROL 1000 INTER.UNIT TAB PO SCH (07:43)
[2018-05-13 07:51] LABS: CALCIUM 8.5 mg/dl (8.5-10.1); CREATININE 1.26 mg/dl (0.60-1.40)
--- NOTE | 2018-05-13 07:51 | Progress Note ---
Subjective Date of Service: May 12, 2018. Subjective Pt evaluation today including: conversation w/ patient, physical exam, chart review, lab review, review of studies (echo), review of inpatient medication list Pain: none PO Intake: normal Voiding: no voiding problems tele with improved rate control of a flutter overnight dyspnea and fatigue are much better he overall feels better he reports that he was seen by a Dr. 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 Lyles in [place] (ophtho) when asked if he was told he had temporal arteritis he reported he "didn't remember hearing that term" he never had temporal artery biopsy he was then sent to a Dr. Guadarrama in [place] (rheumatology??) but no formal diagnosis given at the time of this issue he never had headaches, jaw pain, etc Problem List Medical Problems: (1) Atrial flutter Status: Acute (2) Elevated troponin Status: Acute Review of Systems Constitutional: No fever Respiratory: No shortness of breath, No dyspnea on exertion Cardiac: No chest pain, No palpitations Objective Vital Signs Date Time Temp Pulse Resp B/P (MAP) Pulse Ox O2 Delivery O2 Flow Rate FiO2 05/12/18 19:33 37.2 97 18 128/82 (97) 99 05/12/18 16:12 36.8 102 18 125/92 (103) 94 05/12/18 07:30 Room Air 05/12/18 06:54 36.4 104 20 136/83 (100) 94 Room Air 05/12/18 04:00 Room Air 05/12/18 03:40 36.9 82 16 114/72 (86) 93 Room Air 05/12/18 00:08 37.1 109 20 118/67 (84) 97 Room Air Physical Exam General Appearance: no apparent distress, + obese ENT: pharynx normal Neck: no JVD Respiratory/Chest: lungs clear, no respiratory distress, no accessory muscle use Cardiovascular: regular rate, rhythm, no gallop, no murmur Abdomen: normal bowel sounds, non tender, soft, no organomegaly Extremities: no pedal edema Neurologic/Psychiatric: alert, oriented x 3 Laboratory Results Last 24 Hours Test 05/11/18 22:13 05/12/18 05:58 Activated Partial Thromboplast Time 93.3 SECONDS 65.8 SECONDS Partial Thromboplastin Ratio 3.6 2.5 Troponin I 0.046 ng/ml White Blood Count 9.78 K/uL Red Blood Count 4.96 M/uL Hemoglobin 16.1 g/dL Hematocrit 44.1 % Mean Corpuscular Volume 88.9 fL Mean Corpuscular Hemoglobin 32.5 pg Mean Corpuscular Hemoglobin Concent 36.5 g/dl RDW Standard Deviation 41.6 fL RDW Coefficient of Variation 12.8 % Platelet Count 118 K/uL Mean Platelet Volume 10.0 fL Sodium Level 135 mmol/L Potassium Level 4.0 mmol/L Chloride Level 101 mmol/L Carbon Dioxide Level 25 mmol/L Anion Gap 9.0 mmol/L Blood Urea Nitrogen 19 mg/dl Creatinine 1.06 mg/dl Est Creatinine Clear Calc Drug Dose 74.0 ml/min Estimated GFR () 79.2 Estimated GFR (Non- 68.3 BUN/Creatinine Ratio 18.1 Random Glucose 130 mg/dl Calcium Level 8.1 mg/dl Magnesium Level 2.1 mg/dl Assessment and Plan 77yo male - 1. a flutter, new onset, with RVR - improved with beta veronique. Agree with changing heparin to eliquis. Defer rate control to cardiology. Outpatient DON cardioversion in 4 weeks if still in a flutter? 2. acute/chronic diastolic CHF - acute component improved. 3. chronic prednisone use - for suspected temporal arteritis? I have requested records from [facility] in [place]. 4. positive troponin - myocardial demand ischemia in setting of #1, #2 above. No symptoms of ACS. 5. HTN - controlled with current meds. 6. CAD - cont BB, statin, plavix, etc. No ischemic sx's at this time. 7. hyperlipidemia - statin agent. 8. morbid obesity with BMI 37 9. PAD - carotid disease - s/p CEA on right - noted. progressing from a flutter standpoint Discharge planning: home
[2018-05-13 07:58] VITALS: BP 138/87; PULSE 92; O2SAT 92
[2018-05-13 11:57] VITALS: BP 115/72; PULSE 95; TEMP 36.9; O2SAT 94
--- NOTE | 2018-05-13 12:05 | Cardiology Follow-Up ---
Subjective Subjective Date of Service: May 13, 2018. Pt evaluation today including: conversation w/ patient, physical exam, chart review, lab review, review of studies, review of inpatient medication list Additional Details: The patient had an uneventful night. He continues to be in atrial fibrillation with controlled heart rate. I discussed options again with the patient. Early versus cardioversion after several weeks. He would like to proceed with a transesophageal echocardiogram and cardioversion before discharge. Problem List Medical Problems: (1) Atrial flutter Status: Acute (2) Elevated troponin Status: Acute Review of Systems Constitutional: No fever Respiratory: No shortness of breath, No dyspnea on exertion Cardiac: No chest pain, No palpitations Objective Vital Signs Last Vital Signs Documentation Date Time Temp Pulse Resp B/P (MAP) Pulse Ox O2 Delivery O2 Flow Rate FiO2 05/13/18 11:57 36.9 95 16 115/72 (86) 94 Room Air 05/11/18 13:57 2.0 Physical Exam: General Appearance: no apparent distress, + obese ENT: pharynx normal Neck: no JVD Respiratory/Chest: lungs clear, no respiratory distress, no accessory muscle use Cardiovascular: regular rate, rhythm, no gallop, no murmur Abdomen: normal bowel sounds, non tender, soft, no organomegaly Extremities: no pedal edema Neurologic/Psychiatric: alert, oriented x 3 Skin: normal color, warm/dry, no rash Lymphatic: no adenopathy Assessment and Plan IMPRESSION: 1. New onset atrial flutter with 3:1 conduction. 2. CHADS score of 4. 3. Hypertension. 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 5. Carotid stenosis, status post endarterectomy. Recommendations: As outlined above I presented early versus cardioversion in several weeks. Patient wants to proceed with a transesophageal guided cardioversion tomorrow. I have explained the risk, benefit and intent of the procedures to the patient. He is willing to proceed. The patient is tolerating his medications including the Eliquis. He is also on Plavix because of his history of previous ocular CVAs and TIAs which should be continued. Discharge planning: home Medications: Current Inpatient Medications Medications (Trade) Dose Ordered Sig/[place] Route Start Time Stop Time Status Last Admin Dose Admin Acetaminophen (Tylenol Tab) 650 mg Q4H PRN PO 05/11/18 14:00 06/10/18 13:59 Al Hydrox/Mg Hydrox/Simethicone (Maalox Max Susp) 15 ml Q4H PRN PO 05/11/18 14:00 06/10/18 13:59 Magnesium Hydroxide (Milk Of Magnesia Susp) 30 ml Q12H PRN PO 05/11/18 14:00 06/10/18 13:59 Ondansetron HCl (Zofran Inj) 4 mg Q6H PRN IV 05/11/18 14:00 06/10/18 13:59 Polyethylene (Miralax Powder Packet) 17 gm DAILY PRN PO 05/11/18 14:00 06/10/18 13:59 Clopidogrel Bisulfate (plAVix TAB) 75 mg DAILY PO 05/12/18 09:00 06/11/18 08:59 05/13/18 07:43 75 MG Pravastatin Sodium (Pravachol Tab) 20 mg DAILY PO 05/12/18 09:00 06/11/18 08:59 05/13/18 07:43 20 MG Cholecalciferol (Vitamin D Tab) 2,000 inter.unit DAILY PO 05/12/18 09:00 06/11/18 08:59 05/13/18 07:43 2,000 INTER.UNIT Pantoprazole Sodium (Protonix Tab) 40 mg QAM PO 05/12/18 09:00 06/11/18 08:59 05/13/18 07:43 40 MG Metoprolol Tartrate (Lopressor Tab) 25 mg Q6 PO 05/11/18 18:00 06/10/18 17:59 05/13/18 06:14 25 MG Hydrochlorothiazide (Hydrochlorothiazide Tab) 25 mg QAM PO 05/12/18 09:00 06/11/18 08:59 05/13/18 07:43 25 MG Apixaban (Eliquis Tab) 5 mg BID PO 05/12/18 21:00 06/11/18 20:59 05/13/18 07:42 5 MG Lab Results: Last 24 Hours Test 05/13/18 06:29 05/13/18 11:59 White Blood Count 9.42 K/uL Red Blood Count 5.27 M/uL Hemoglobin 16.4 g/dL Hematocrit 46.9 % Mean Corpuscular Volume 89.0 fL Mean Corpuscular Hemoglobin 31.1 pg Mean Corpuscular Hemoglobin Concent 35.0 g/dl RDW Standard Deviation 40.6 fL RDW Coefficient of Variation 12.6 % Platelet Count 130 K/uL Mean Platelet Volume 10.3 fL Sodium Level 137 mmol/L Potassium Level 4.0 mmol/L Chloride Level 100 mmol/L Carbon Dioxide Level 27 mmol/L Anion Gap 10.0 mmol/L Blood Urea Nitrogen 19 mg/dl Creatinine 1.26 mg/dl Est Creatinine Clear Calc Drug Dose 61.5 ml/min Estimated GFR () 64.2 Estimated GFR (Non- 55.4 BUN/Creatinine Ratio 15.1 Random Glucose 112 mg/dl Calcium Level 8.5 mg/dl Magnesium Level 2.0 mg/dl
[2018-05-13 12:41] LABS: INR 1.1 (0.9-1.1)
[2018-05-13 15:22] VITALS: BP 124/78; PULSE 105; TEMP 37.1; O2SAT 94
[2018-05-13 19:20] VITALS: BP 142/93; PULSE 105; TEMP 36.8; O2SAT 90
[2018-05-13 23:40] VITALS: BP 114/72; PULSE 95; TEMP 37.1; O2SAT 93
[2018-05-14] VITALS (7 sets, daily range): BP systolic 105–133; BP diastolic 56–92; PULSE 100–124; TEMP 36.3–37.2; O2SAT 92–98
--- NOTE | 2018-05-14 06:30 | Progress Note ---
Subjective Date of Service: May 13, 2018. Subjective Pt evaluation today including: conversation w/ patient, conversation w/ family (, son at bedside), physical exam, chart review, lab review, review of studies (labs from [facility]), review of inpatient medication list Pain: none PO Intake: normal Voiding: no voiding problems tele -a flutter, rates 90s to low 100s patient has elected to undergo DON tomorrow offers no new complaints Problem List Medical Problems: (1) Atrial flutter Status: Acute (2) Elevated troponin Status: Acute Review of Systems Respiratory: No shortness of breath Cardiac: No chest pain, No orthopnea, No PND, No edema Abdomen: No pain Objective Vital Signs Date Time Temp Pulse Resp B/P (MAP) Pulse Ox O2 Delivery O2 Flow Rate FiO2 05/13/18 19:20 36.8 105 18 142/93 (109) 90 05/13/18 15:22 37.1 105 18 124/78 (93) 94 05/13/18 11:57 36.9 95 16 115/72 (86) 94 Room Air 05/13/18 07:58 92 16 138/87 (104) 92 Room Air 05/13/18 07:30 Room Air 05/13/18 03:35 37.0 99 16 116/68 (84) 94 Room Air 05/12/18 23:38 36.8 106 20 130/90 (103) 93 Room Air 05/12/18 20:05 Room Air Physical Exam General Appearance: no apparent distress, + obese ENT: pharynx normal Neck: no JVD Respiratory/Chest: lungs clear, no respiratory distress, no accessory muscle use Cardiovascular: no gallop, no murmur, + tachycardia Abdomen: normal bowel sounds, non tender, soft, no organomegaly Extremities: no pedal edema Laboratory Results Last 24 Hours Test 05/13/18 06:29 05/13/18 12:24 White Blood Count 9.42 K/uL Red Blood Count 5.27 M/uL Hemoglobin 16.4 g/dL Hematocrit 46.9 % Mean Corpuscular Volume 89.0 fL Mean Corpuscular Hemoglobin 31.1 pg Mean Corpuscular Hemoglobin Concent 35.0 g/dl RDW Standard Deviation 40.6 fL RDW Coefficient of Variation 12.6 % Platelet Count 130 K/uL Mean Platelet Volume 10.3 fL Sodium Level 137 mmol/L Potassium Level 4.0 mmol/L Chloride Level 100 mmol/L Carbon Dioxide Level 27 mmol/L Anion Gap 10.0 mmol/L Blood Urea Nitrogen 19 mg/dl Creatinine 1.26 mg/dl Est Creatinine Clear Calc Drug Dose 61.5 ml/min Estimated GFR () 64.2 Estimated GFR (Non- 55.4 BUN/Creatinine Ratio 15.1 Random Glucose 112 mg/dl Calcium Level 8.5 mg/dl Magnesium Level 2.0 mg/dl Prothrombin Time 11.9 SECONDS Prothromb Time International Ratio 1.1 Assessment and Plan 77yo male - 1. a flutter, new onset, with RVR - rates improved with beta veronique. Remains on eliquis. Pt now opting for DON cardioversion - scheduled for tomorrow AM by [facility]. NPO after HI tonight. 2. acute/chronic diastolic CHF - acute component resolved. 3. chronic prednisone use - for suspected temporal arteritis? Records reviewed from [facility] in [place]. Sed rate was completely normal. CRP was only 4. RF was negative. Other labs including blood cx's were negative. I have asked patient to return to the prescribing provider and try to get off the steroids yamilex. I see no clinical indication for chronic steroids. 4. positive troponin - myocardial demand ischemia in setting of #1, #2 above. No symptoms of ACS. 5. HTN - controlled with current meds. 6. CAD - cont BB, statin, plavix, etc. No ischemic sx's at this time. 7. hyperlipidemia - statin agent. 8. morbid obesity with BMI 37 9. PAD - carotid disease - s/p CEA on right - noted. DON tomorrow family updated Continued [facility] stay due to: other (need for DON) Discharge planning: home
[2018-05-14 06:49] LABS: HEMOGLOBIN 17.4 g/dL (14.0-18.0); MEAN CELL VOLUME 88.4 fL (80-100); MEAN CORPUSCULAR HGB CONC 36.3 g/dl (32-36); MEAN PLATELET VOLUME 10.2 fL (7.4-10.4); PLATELET COUNT 132 K/uL (130-400); RED CELL DISTRIBUTION WIDTH CV 12.7 % (11.5-14.5); RED CELL DISTRIBUTION WIDTH SD 40.5 fL (36.4-46.3); WHITE BLOOD COUNT 9.03 K/uL (4.8-10.8)
[2018-05-14] MEDS: METOPROLOL TARTRATE 25 MG TAB PO SCH ×3 (06:50→17:38)
[2018-05-14 07:14] LABS: CALCIUM 9.2 mg/dl (8.5-10.1); CREATININE 1.43 mg/dl (0.60-1.40); POTASSIUM 4.4 mmol/L (3.5-5.1)
[2018-05-14] MEDS ORDERED: NURSING VERBAL MED ORDER ONE (07:15)
[2018-05-14] MEDS: SODIUM CHLORIDE 0.9% 1000ML 1,000 ML IV SCH ×2 (08:25→21:25)
[2018-05-14] MEDS: APIXABAN 2.5 MG TAB PO SCH ×2 (08:26→21:26)
[2018-05-14] MEDS: CHOLECALCIFEROL 1000 INTER.UNIT TAB PO SCH (08:26)
[2018-05-14] MEDS: CLOPIDOGREL BISULFATE 75 MG TAB PO SCH (08:26)
[2018-05-14] MEDS: HYDROCHLOROTHIAZIDE 25 MG TAB PO SCH (08:26)
[2018-05-14] MEDS: PRAVASTATIN SOD 20 MG TAB PO SCH (08:26)
[2018-05-14] MEDS: PANTOprazole SOD 40 MG TAB PO SCH (08:26)
[2018-05-14] MEDS ORDERED: PANTOprazole SOD 40 MG TAB PO STA (09:57)
--- NOTE | 2018-05-14 10:01 | Cardiology Follow-Up ---
Subjective Subjective Date of Service: May 14, 2018. Pt evaluation today including: conversation w/ patient, conversation w/ family , physical exam, chart review, lab review, review of studies, conversation w/ consultant electronics, review of inpatient medication list Additional Details: The patient was to have a cardioversion this morning however, when he got up to go and use the bathroom he had an ill feeling and became nauseated. No vomiting. EKG was obtained that showed atrial fibrillation. Problem List Medical Problems: (1) Atrial flutter Status: Acute (2) Elevated troponin Status: Acute Review of Systems Constitutional: No fever Respiratory: No shortness of breath Cardiac: No chest pain, No orthopnea, No PND, No edema Abdomen: No pain Objective Vital Signs Last Vital Signs Documentation Date Time Temp Pulse Resp B/P (MAP) Pulse Ox O2 Delivery O2 Flow Rate FiO2 05/14/18 08:00 Room Air 05/14/18 07:46 36.4 100 20 122/92 (102) 96 4.0 Physical Exam: General Appearance: no apparent distress, + obese ENT: pharynx normal Neck: no JVD Respiratory/Chest: lungs clear, no respiratory distress, no accessory muscle use Cardiovascular: no gallop, no murmur, + tachycardia, + irregularly irregular Abdomen: normal bowel sounds, non tender, soft, no organomegaly Extremities: no pedal edema Neurologic/Psychiatric: alert, oriented x 3 Skin: normal color, warm/dry, no rash Lymphatic: no adenopathy Assessment and Plan IMPRESSION: 1. Persistent atrial flutter 2. CHADS score of 4. 3. Hypertension. 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 5. Carotid stenosis, status post endarterectomy. Recommendations: As outlined above the patient had nausea this morning. The DON has been postponed. I did recheck the patient and he is feeling better after some IV fluids. The plan will be to make the patient n.p.o. after midnight and try to proceed with the DON/cardioversion tomorrow morning. Continued [facility] stay due to: other (need for DON) Discharge planning: home Medications: Current Inpatient Medications Medications (Trade) Dose Ordered Sig/[place] Route Start Time Stop Time Status Last Admin Dose Admin Acetaminophen (Tylenol Tab) 650 mg Q4H PRN PO 05/11/18 14:00 06/10/18 13:59 Al Hydrox/Mg Hydrox/Simethicone (Maalox Max Susp) 15 ml Q4H PRN PO 05/11/18 14:00 06/10/18 13:59 Magnesium Hydroxide (Milk Of Magnesia Susp) 30 ml Q12H PRN PO 05/11/18 14:00 06/10/18 13:59 Ondansetron HCl (Zofran Inj) 4 mg Q6H PRN IV 05/11/18 14:00 06/10/18 13:59 05/14/18 06:15 4 MG Polyethylene (Miralax Powder Packet) 17 gm DAILY PRN PO 05/11/18 14:00 06/10/18 13:59 Clopidogrel Bisulfate (plAVix TAB) 75 mg DAILY PO 05/12/18 09:00 06/11/18 08:59 05/14/18 08:26 75 MG Pravastatin Sodium (Pravachol Tab) 20 mg DAILY PO 05/12/18 09:00 06/11/18 08:59 05/14/18 08:26 20 MG Cholecalciferol (Vitamin D Tab) 2,000 inter.unit DAILY PO 05/12/18 09:00 06/11/18 08:59 05/14/18 08:26 2,000 INTER.UNIT Pantoprazole Sodium (Protonix Tab) 40 mg QAM PO 05/12/18 09:00 06/11/18 08:59 05/14/18 08:26 40 MG Metoprolol Tartrate (Lopressor Tab) 25 mg Q6 PO 05/11/18 18:00 06/10/18 17:59 05/14/18 06:50 25 MG Hydrochlorothiazide (Hydrochlorothiazide Tab) 25 mg QAM PO 05/12/18 09:00 06/11/18 08:59 05/14/18 08:26 25 MG Apixaban (Eliquis Tab) 5 mg BID PO 05/12/18 21:00 06/11/18 20:59 05/14/18 08:26 5 MG Sodium Chloride 1,000 ml @ 75 mls/hr [id number] IV 05/14/18 07:30 06/13/18 07:29 05/14/18 08:25 125 MLS/HR Lab Results: Last 24 Hours Test 05/13/18 12:24 05/14/18 06:14 05/14/18 06:37 Prothrombin Time 11.9 SECONDS Prothromb Time International Ratio 1.1 Bedside Glucose 140 mg/dl White Blood Count 9.03 K/uL Red Blood Count 5.43 M/uL Hemoglobin 17.4 g/dL Hematocrit 48.0 % Mean Corpuscular Volume 88.4 fL Mean Corpuscular Hemoglobin 32.0 pg Mean Corpuscular Hemoglobin Concent 36.3 g/dl RDW Standard Deviation 40.5 fL RDW Coefficient of Variation 12.7 % Platelet Count 132 K/uL Mean Platelet Volume 10.2 fL Sodium Level 137 mmol/L Potassium Level 4.4 mmol/L Chloride Level 100 mmol/L Carbon Dioxide Level 29 mmol/L Anion Gap 9.0 mmol/L Blood Urea Nitrogen 25 mg/dl Creatinine 1.43 mg/dl Est Creatinine Clear Calc Drug Dose 53.8 ml/min Estimated GFR () 55.1 Estimated GFR (Non- 47.6 BUN/Creatinine Ratio 17.2 Random Glucose 132 mg/dl Calcium Level 9.2 mg/dl Magnesium Level 1.8 mg/dl Troponin I 0.048 ng/ml
[2018-05-14] MEDS ORDERED: METOPROLOL TARTRATE 25 MG TAB PO STA (13:50)
[2018-05-15] VITALS (17 sets, daily range): BP systolic 110–167; BP diastolic 59–93; PULSE 77–104; TEMP 36.3–36.6; O2SAT 94–97
[2018-05-15] MEDS: METOPROLOL TARTRATE 50 MG TAB PO SCH ×3 (00:04→12:06)
--- NOTE | 2018-05-15 05:56 | Progress Note ---
Subjective Date of Service: May 14, 2018. Subjective Pt evaluation today including: conversation w/ patient, physical exam, chart review, lab review, conversation w/ senior health consultant (cardiology), review of inpatient medication list Pain: none PO Intake: did not eat breakfast because of nausea but ate lunch Voiding: no voiding problems had uneventful night until 0630 this am at that time he was in the bathroom washing up and doing his ADLs for the day immediately after he had severe nausea, was diaphoretic, and was dizzy he got back into the bed and called the nurse the monitor showed rapid a flutter he has had poor rate control most of this morning DON canceled and rescheduled for Monday I called and spoke with [facility] they confirmed that patient is indeed on prednisone and takes 60mg daily last refill was about April 11 Problem List Medical Problems: (1) Atrial flutter Status: Acute (2) Elevated troponin Status: Acute Review of Systems Constitutional: No fever Respiratory: No shortness of breath, No dyspnea on exertion Cardiac: No chest pain, No orthopnea, No PND, No edema Abdomen: + nausea, No pain, No vomiting, No constipation Objective Vital Signs Date Time Temp Pulse Resp B/P (MAP) Pulse Ox O2 Delivery O2 Flow Rate FiO2 05/14/18 19:28 36.3 105 18 130/91 (104) 93 Room Air 05/14/18 15:17 37.2 112 18 112/56 (74) 94 Room Air 05/14/18 12:08 36.5 124 18 133/80 (97) 96 Room Air 05/14/18 08:00 Room Air 05/14/18 07:46 36.4 100 20 122/92 (102) 96 Nasal Cannula 4.0 05/14/18 06:52 36.8 109 16 131/85 (100) 98 Nasal Cannula 4.0 05/14/18 03:35 36.7 104 18 105/71 (82) 94 Room Air 05/13/18 23:40 37.1 95 18 114/72 (86) 93 Room Air Physical Exam General Appearance: no apparent distress, + obese ENT: pharynx normal Neck: no JVD Respiratory/Chest: lungs clear, no respiratory distress, no accessory muscle use Cardiovascular: no gallop, no murmur, + tachycardia Abdomen: normal bowel sounds, non tender, soft, no organomegaly Extremities: no pedal edema Neurologic/Psychiatric: alert, oriented x 3 Laboratory Results Last 24 Hours Test 05/14/18 06:14 05/14/18 06:37 Bedside Glucose 140 mg/dl White Blood Count 9.03 K/uL Red Blood Count 5.43 M/uL Hemoglobin 17.4 g/dL Hematocrit 48.0 % Mean Corpuscular Volume 88.4 fL Mean Corpuscular Hemoglobin 32.0 pg Mean Corpuscular Hemoglobin Concent 36.3 g/dl RDW Standard Deviation 40.5 fL RDW Coefficient of Variation 12.7 % Platelet Count 132 K/uL Mean Platelet Volume 10.2 fL Sodium Level 137 mmol/L Potassium Level 4.4 mmol/L Chloride Level 100 mmol/L Carbon Dioxide Level 29 mmol/L Anion Gap 9.0 mmol/L Blood Urea Nitrogen 25 mg/dl Creatinine 1.43 mg/dl Est Creatinine Clear Calc Drug Dose 53.8 ml/min Estimated GFR () 55.1 Estimated GFR (Non- 47.6 BUN/Creatinine Ratio 17.2 Random Glucose 132 mg/dl Calcium Level 9.2 mg/dl Magnesium Level 1.8 mg/dl Troponin I 0.048 ng/ml Assessment and Plan 77yo male - 1. a flutter, new onset, with RVR - rates poorly controlled today. Increase metoprolol to 50mg q6h. Remains on eliquis. Pt now opting for DON cardioversion - [facility] for tomorrow [facility]. NPO after MN tonight. 2. acute/chronic diastolic CHF - acute component resolved. 3. chronic prednisone use - for suspected temporal arteritis? Records reviewed from [facility] in [place]. Sed rate was completely normal. CRP was only 4. RF was negative. Other labs including blood cx's were negative. I have asked patient to return to the prescribing provider and try to get off the steroids yamilex. I see no clinical indication for chronic steroids. Called and spoke with [facility] in [facility] today to obtain prednisone dosing. He has been taking 60mg of prednisone daily since February. Will re-order that dose starting now. 4. positive troponin - myocardial demand ischemia in setting of #1, #2 above. No symptoms of ACS. I believe the symptoms this am were due to either being off the prednisone OR the rapid heart rate itself. 5. HTN - controlled with current meds. 6. CAD - cont BB, statin, plavix, etc. No ischemic sx's at this time. 7. hyperlipidemia - statin agent. 8. morbid obesity with BMI 37 9. PAD - carotid disease - s/p CEA on right - noted. 10. FEN - agree with IVF in light of this AM's events. BMP am. NPO after MD tonight. DON tomorrow AM Continued [facility] stay due to: other (need for DON, rapid a flutter) Discharge planning: home
[2018-05-15] MEDS ORDERED: PHENYLEPHRINE 100MCG/ML 5ML SYR IV PRN (06:45)
[2018-05-15] MEDS ORDERED: ONDANSETRON INJ 2 MG/ML 2 ML VIAL IV PRN (06:45)
[2018-05-15] MEDS ORDERED: ATROPINE SULFATE 0.1 MG/ML 5ML SYR IV PRN (06:45)
[2018-05-15] MEDS ORDERED: EpHEDrine SULFATE INJ 50 MG/ML AMP IV PRN (06:45)
[2018-05-15 07:37] LABS: CALCIUM 8.8 mg/dl (8.5-10.1); CREATININE 1.29 mg/dl (0.60-1.40); POTASSIUM 4.4 mmol/L (3.5-5.1)
--- NOTE | 2018-05-15 08:05 | Cardiology Progress Note ---
Cardiology Progress Note Date of Service May 15, 2018. Cardiology Progress Note Procedure: Transesophageal echocardiogram and cardioversion History: This is a 77-year-old male patient who presented with new atrial flutter. Procedure summary: The patient was brought to the holding area the Cost Estimator. After informed consent was obtained the patient was given sedation by anesthesia. The transesophageal probe then was inserted into the esophagus and imaging was performed to exclude contraindication to the cardioversion. Following the transesophageal echocardiogram the patient was cardioverted 1 with 200 J of biphasic energy to normal sinus rhythm. The patient tolerated the procedures well and was returned to the PCU in stable condition.
[2018-05-15] MEDS ORDERED: PROPOFOL IV EMULSION 10 MG/ML 20 ML VIAL ONE (08:13)
[2018-05-15] MEDS ORDERED: LIDOCAINE HCL 2% 2 ML VIAL (20MG/ML) ONE (08:13)
--- NOTE | 2018-05-15 08:45 | Anesthesiology Progress Note ---
Anesthesia Post Op Note Date & Time May 15, 2018 at 08:45 Vital Signs Pain Intensity: 0 Vital Signs Past 12 Hours Date Time Temp Pulse Resp B/P (MAP) Pulse Ox O2 Delivery O2 Flow Rate FiO2 05/15/18 08:30 77 14 122/75 (91) 96 Nasal Cannula 2 05/15/18 08:15 77 14 126/81 (96) 98 Nasal Cannula 2 05/15/18 08:10 75 14 131/81 (98) 98 Nasal Cannula 4 05/15/18 08:05 80 12 132/91 (105) 98 Nasal Cannula 4 05/15/18 08:00 75 12 125/77 (93) 96 Nasal Cannula 10 05/15/18 07:55 97 12 147/59 96 Nasal Cannula 10 05/15/18 07:55 76 12 147/59 (88) 96 Nasal Cannula 10 05/15/18 07:50 97 14 117/73 97 Nasal Cannula 10 05/15/18 07:45 95 14 110/72 96 Nasal Cannula 10 05/15/18 07:40 93 14 161/93 96 Nasal Cannula 4 05/15/18 07:35 94 16 161/93 (115) 100 Nasal Cannula 4 05/15/18 07:08 36.4 91 16 137/103 (114) 95 Room Air 05/15/18 03:38 36.3 99 20 138/90 (106) 94 Room Air 05/15/18 00:02 Room Air 05/14/18 23:48 37.0 110 18 125/81 (96) 92 Room Air Notes Mental Status: alert / awake / arousable, participated in evaluation Pt Amnestic to Procedure: Yes Nausea / Vomiting: adequately controlled Pain: adequately controlled Airway Patency, RR, SpO2: stable & adequate BP & HR: stable & adequate Hydration State: stable & adequate Anesthetic Complications: no major complications apparent
[2018-05-15] MEDS ORDERED: PANTOprazole SOD 40 MG TAB PO SCH (09:00)
[2018-05-15] MEDS: SODIUM CHLORIDE 0.9% 1000ML 1,000 ML IV SCH (09:21)
--- NOTE | 2018-05-15 09:21 | TEE ---
*NOTICE TO RECEIVING REPUBLICAN AGENCY This information is strictly Confidential and protected under [place] law. [place] law prohibits you from making any further disclosure of this information unless further disclosure is expressly permitted by the written consent of the person to whom it pertains or is authorized by law. A general authorization for the release of medical or other information is not sufficient for this purpose. Hospital accepts no responsibility if the information is made available to any other person, INCLUDING THE PATIENT. Interpretation Summary * Name: LORIE CAMPBELL Study Date: 05/15/2018 07:40 AM BP: 161/93 mmHg * Patient Location: [facility] HR: 97 * : 1940 (M/d/yyyy) Gender: Male Height: 68 in * Age: 77 yrs Ethnicity: [place] Weight: 246 lb * Ordering Physician: Mauro Dominguez DO * Performed By: Montse Borja RDCS * * Reason For Study: Cardioversion * BSA: 2.2 m2 * -- Conclusions -- * No contraindication for cardioversion by transesophageal echocardiogram. Procedure Details * The transesophageal portion of this study was personally supervised by the undersigned interpreting physician. * The study was performed in Cardiac Catheterization Lab. * Time out was conducted by the physician, nurse, and generator technician with positive identification of patient and procedure. * Informed consent for Transesophageal Echocardiogram was obtained prior to the procedure. * An intravenous line was placed. A topical anesthetic agent was used for oropharangeal anesthesia. A bite block was inserted. * Sedation performed by the anesthesia department. * The patient's vital signs, including blood pressure, heart rate, pulse oximetry and cardiac rhythm were monitored throughout the procedure . * The posterior oropharynx was anesthetized using a topical anesthetic spray. A bite guard was inserted. * A multifrequency, multiplane transesopheageal echocardiographic endoscope was inserted and manipulated in the standard fashion to achieve multiplane views. * The transesophageal probe was passed without difficulty. * The usual views were obtained; basal, mid-esophageal, transgastric and aortic views. * The patient tolerated the procedure well without evidence of orophangeal or esophageal trauma. * A 2D transesophageal echocardiogram with spectral and color flow Doppler was performed. * 130mg Propofol utilized for procedure. Start time 07:40 End time 07:55 Probe #3 utilized for procedure. * A 2D transesophageal echocardiogram with Doppler and color flow Doppler was performed. Left Ventricle * The left ventricle is normal in size. * There is normal left ventricular wall thickness. * Left ventricular systolic function is normal. * The left ventricular wall motion is normal at rest. Right Ventricle * The right ventricular systolic function is normal. Atria * The left atrial size is normal. * No thrombus is detected in the left atrial appendage. * Right atrial size is normal. * The interatrial septum is intact with no evidence for an atrial septal defect. Mitral Valve * The mitral valve anatomy is normal. * Significant mitral regurgitation is absent. Tricuspid Valve * The tricuspid valve anatomy is normal. * Significant tricuspid regurgitation is absent. Aortic Valve * The aortic valve is tricuspid. The leaflet thickness if normal. There is no aortic stenosis, and no significant insufficiency. * Aortic stenosis is absent. * There is no significant aortic regurgitation. Pulmonic Valve * The pulmonic valve is not well seen, but is grossly normal. Great Vessels * The aortic root and proximal ascending aorta are normal sized. Pericardium * There is no pericardial effusion.
[2018-05-15] MEDS: PANTOprazole SOD 40 MG TAB PO SCH (09:49)
[2018-05-15] MEDS: APIXABAN 2.5 MG TAB PO SCH (09:50)
[2018-05-15] MEDS: CLOPIDOGREL BISULFATE 75 MG TAB PO SCH (09:50)
[2018-05-15] MEDS: CHOLECALCIFEROL 1000 INTER.UNIT TAB PO SCH (09:50)
[2018-05-15] MEDS: PRAVASTATIN SOD 20 MG TAB PO SCH (09:51)
[2018-05-15] MEDS: HYDROCHLOROTHIAZIDE 25 MG TAB PO SCH (09:51)
--- NOTE | 2018-05-15 10:37 | Progress Note ---
Progress Note Date of Service May 15, 2018. Progress Note The patient underwent a successful cardioversion this morning. He is maintaining sinus rhythm. He is fully recovered from the anesthesia. At this point I will make arrangements for him to have follow-up with our group as an outpatient. Our office will call him with an appointment. I believe he may be discharged later today.
[2018-05-15] MEDS ORDERED: METO-452 PO (13:59)
[2018-05-15] MEDS ORDERED: APIX1TAB3 PO (13:59)
[2018-05-15] MEDS ORDERED: PRD20 PO (13:59)
--- NOTE | 2018-05-15 14:27 | Discharge Instructions ---
Discharge Instructions Date of Service May 15, 2018. Admission Reason for Admission: Atrial Flutter Discharge Discharge Diagnosis / Problem: Atrial Flutter - with successful electrical cardioversion Discharge Goals Goal(s): Learn about illness, Diagnostic testing, Therapeutic intervention Activity Recommendations Activity Limitations: as noted below For the next 2-3 days please take it easy and avoid heavy lifting and strenuous activities. Ok for light activity and light walking. . Instructions / Follow-Up Instructions / Follow-Up From Dr. Álvarez - 1. atrial flutter - fortunately you had a successful electrical cardioversion on 05/15/18 with church of normal rhythm. Hopefully you will remain in normal rhythm for some time. I would suggest you try to monitor your heart rate (pulse) periodically at home by using your blood pressure cuff (many of the cuffs you can purchase at the store have a heart rate detector with it). If your pulse is over 100 you may have converted back to atrial flutter. For the atrial flutter we recommend the following - * eliquis blood thinner - 5mg twice a day * toprol xl (metoprolol xl) 50mg twice a day Call your Doctor if you experience any of the following: * Chest Pain * Sudden Shortness of Breath * Rapid or pounding heart beat * Fainting * Dizziness * Cough with blood or bloody sputum * Sweating more than normal * Bruises * heavy or uncontrolled bleeding * Blood in your urine, stool or vomit * Black or tarry stools Due to your eliquis please use an electric shaver in place of a traditional straight razor when you shave your face. 2. prednisone use - as we discussed please go back to the doctor that originally prescribed the prednisone and find out if you can come off this medication. Since you have been on the prednisone for 2-3 months you will not be able to simply stop it; it will have to be weaned off slowly over several weeks. I have given you a 2-week refill on the prednisone to get you through the time you see your eye doctors. 3. Call 911 and go to the Emergency Room if: * You have tightness or pain in your chest that does not go away with rest or Nitroglycerin * You are very short of breath even with rest Call your doctor if any of the following symptoms or problems start or get worse: * Shortness of breath or difficulty breathing * Wake up at night short of breath * Chest pain * Cough * Swelling of your hands, fee, or legs * More fatigued or tired with your normal activity * Palpitations - sudden fast heart beats WEIGHT * Weigh yourself every morning after using the bathroom. * Use the same scale. * Wear the same amount of clothing. * Write your weight down on your chart. * Call your doctors right away if you gain more than 2-3 pounds in 1-2 days. This can be a sign you are taking on fluid weight from your heart troubles. MEDICATIONS * Use this discharge instruction sheet for instructions. * Take your medications at the time your doctor ordered. * Do not skip a dose of your medicines. * If you miss a dose of medicine, take as soon as possible, but DO NOT DOUBLE A DOSE. * Read your medicine information when you get home. * Know all of the side effects of your medicine. * Call your doctor's office if you have any side effects. * Be sure all of your doctors know what medicine and herbs you take (including cold, flu, and herbal medicine). * Pain Medicine: If you do not get relief from your pain, please call your doctor for help. Take the following with you to your follow-up doctor appointments: * Weight Chart * Medication List * List of questions Do not drink excessive alcohol, beer or wine. 4. STOP your aspirin. 5. STOP your atenolol (you will be using metoprolol xl in its place). 6. I noticed during your stay that some of your blood sugars were mildly high. Please speak with Dr. Kong about screening for type 2 diabetes. The prednisone is well known to bring on type 2 diabetes in many individuals. 7. Follow-up - * see Dr. Kong later this week as scheduled * see Dr. Carlos Sullivan, [facility], within 2 weeks * see your eye doctors PRIYANKA to discuss the prednisone issue 8. Return to [facility] if - * you have worsening shortness of breath * you feel that you are back in atrial flutter * you have chest pain * you develop dizziness or lightheadedness * you have bleeding that won't stop from any location * any other concerns Current Hospital Diet Patient's current hospital diet: AHA Diet (Heart Healthy) Discharge Diet Recommended Diet: AHA Diet (Heart Healthy) Procedures Procedures Performed: 1. echocardiogram with normal heart function 2. electrical cardioversion with successful church of normal rhythm (a flutter now resolved) 3. dopplers of your legs without evidence of DVT blood clots Pending Studies Studies pending at discharge: no Medical Emergencies . Who to Call and When: Medical Emergencies: If at any time you feel your situation is an emergency, please call 911 immediately. . Non-Emergent Contact Non-Emergency issues call your: Primary Care Provider, Medicaid Billing Specialist Call Non-Emergent contact if: you have any medication questions . . "Provider Documentation" section prepared by Mihir Álvarez. .
--- NOTE | 2018-05-17 06:08 | Discharge Summary ---
Discharge Summary Date of Service May 17, 2018. Discharge Summary Admission Date: May 11, 2018 at 13:58 Discharge Date: May 15, 2018 Discharge Disposition: Home Principal Diagnosis: a flutter with RVR s/p DON cardioversion Problems/Secondary Diagnoses: 1. Acute/chronic diastolic CHF 2. CAD S/P PCI x 3 3. Coronary Rupture with Cath 4. Cardiac Arrest during Cath 5. HTN 6. Hyperlipidemia 7. GERD 8. S/P right Carotid Endarterectomy 9. S/P Cholecystectomy 10. history of amaurosis fugax 11. history of stroke of eyes 12. chronic prednisone usage - reason uncertain 13. morbid obesity - BMI 37 14. positive troponin - likely myocardial demand ischemia in setting of rapid a flutter 15. elevated glucoses - follow-up with PCP to screen for T2DM Procedures: 1. echocardiogram: * -- Conclusions -- * Normal LV chamber size with mild concentric LVH. * Normal LV systolic function, EF 55-60%. * No segmental left ventricular wall motion abnormalities are noted. * Grade II diastolic dysfunction. * Aortic valve sclerosis mild, without significant aortic valvular stenosis. 2. b/l LE venous duplex study negative for DVT. 3. DON cardioversion - Dr. Mauro Dominguez Consultations: cardiology - [facility] cardiology Medication Reconciliation New Medications: Metoprolol Succinate (Toprol Xl) 50 Mg Tab 1 TAB PO BID for 30 Days, #60 TAB 5 Refills for atrial flutter/heart Apixaban (Eliquis) 5 Mg Tab 5 MG PO BID for 30 Days, #60 TAB 5 Refills Prednisone (Prednisone) 20 Mg Tab 60 MG PO QAM for 14 Days, #42 TAB 0 Refills start 05/16/18 Continued Medications: Clopidogrel Bisulfate (Plavix) 75 Mg Tab 75 MG PO DAILY, TAB Ergocalciferol (Vitamin D) 2,000 Unit Cap 2000 UNITS PO DAILY Hctz/Lisinopril (Lisinopril/Hctz 10/12.5 Mg) 1 Ea Tab 1 TAB PO DAILY Omeprazole (Prilosec) 20 Mg Capcr 20 MG PO DAILY Pravastatin (Pravachol ) 20 Mg Tab 20 MG PO DAILY Discontinued Medications: Aspirin (Aspirin Ec) 81 Mg Tab 162 MG PO DAILY Atenolol (Tenormin) 25 Mg Tab 25 MG PO DAILY Referrals At Discharge Follow up Referrals: Change Control Analyst Referral - Within 1-2 Weeks with Carlos Sullivan M.D. Discharge Exam Physical Exam: General Appearance: no apparent distress, + obese ENT: pharynx normal Neck: no JVD, + pertinent finding (right CEA scar) Respiratory/Chest: lungs clear, no respiratory distress, no accessory muscle use Cardiovascular: regular rate, rhythm, no gallop, no murmur, normal peripheral pulses Abdomen / GI: normal bowel sounds, non tender, soft, no organomegaly Extremities: no pedal edema Neurologic/Psychiatric: alert, oriented x 3 Skin: no rash Hospital Course HISTORY OF PRESENT ILLNESS: Mr. Gamez is a 77 y/o male with PMHx of CAD S/P PCI x 3, Coronary Rupture/ Cardiac Arrest with Cath (2002), HTN, Hyperlipidemia, and GERD who presents to the ED from his PCP due to new onset A Flutter with RVR. Patient reports that his symptoms have been progressive over the past 1-2 weeks. He endorses SOB largely with exertion and extreme fatigue. He states he can only do small tasks before needing to stop to take a break. He has also noticed progressive b/l lower extremity edema and reporting his legs feeling like concrete and very heavy to try and walk. He states he noticed some chronic swelling but not this significant. He denies feelings of palpations or feeling like his heart was racing. He denies CP or dizziness/lightheadedness. At his PCP he was found to be in A Flutter and was transferred to the ED. He was given Diltiazem 15 mg x 1 dose enroute. His HR went from 140s to 90-100. He intermittently would go up to 120 after initiation. He is feeling well at rest. He reports he is currently being treating for possible clot in eye by several eye physicians. Confirmed with his pharmacy with his permission that he was prescribed Plavix for this in addition to his ASA therapy. HOSPITAL COURSE: Attempts at rate control with AV [place] agents for his rapid atrial flutter were met with limited success. Systemic anticoagulation was recommended and he was initiated on eliquis twice daily. DON cardioversion was ultimately recommended by [facility] and on the morning of discharge he underwent successful DON cardioversion by Dr. Mauro Dominguez. For several hours post-cardioversion he remained in NSR. At discharge he will take toprol xl twice daily for rate control in the event he converts back to atrial flutter. Eliquis twice daily will be continued as well. The patient was also managed for mild acute/chronic diastolic CHF with IV/PO diuretics while here. At time of discharge the patient appeared euvolemic. He will remain on HCTZ as previous. He was given CHF instructions and asked to check his weights daily at home. The patient and his family reported that he had been taking prednisone daily since sometime in February 2018. He had been placed on this in the setting of "strokes of both eyes." The family recalls that he had seen 2-3 different providers in [place] and [place] following the eye issue. We called and confirmed with his pharmacy that he had been taking 60mg/day of prednisone since the spring. The exact reason for the prednisone use was uncertain - perhaps there had been concern for temporal arteritis? The patient and his family had not heard that diagnosis before and a temporal artery biopsy had not been recommended. Lab studies performed at [facility] in [place] in January 2018 were obtained and these showed normal sed rate, minimally elevated CRP, negative blood cultures, negative rheumatoid factor, etc. Again it is unclear if the patient was given the prednisone to cover for the possibility of temporal arteritis or some other form of vasculitis/autoimmune disease. I asked the patient to return to the prescribing provider of the prednisone to determine why he remains on this. Lastly, the patient was noted to have several elevated blood glucoses while hospitalized. I asked him to discuss this with his PCP and to be screened for T2DM. Total Time Spent: Greater than 30 minutes This includes examination of the patient, discharge planning, medication reconciliation, and communication with other providers. Discharge Instructions Please refer to the electronic Patient Visit Report (Discharge Instructions) for additional information. Follow-Up 1. Dr. Kong on MondayMay 18 at 10:[address] Carlos Sullivan, [facility], within 1-2 weeks. Additional Copies To Dheeraj Kong M.D.; Carlos Sullivan M.D.; Mauro Dominguez,
== END 2018-05-15 15:00 | disposition home or self-care (01) | DRG 308 ==
LOC: C.EDA 10:16 → EDBD 10:16 → C.2T 13:58 → EDBEDREQ 14:07 → ENRESERV 14:14
PROVIDERS: ADMIT Family Medicine; ATTEND Internal Medicine
PROC: 5A2204Z Restoration of Cardiac Rhythm, Single (ICD-10-PCS; principal; 2018-05-15 07:45)
DX: I48.92 Unspecified atrial flutter (principal); I50.33 Acute on chronic diastolic (congestive) heart failure; Z79.82 Long term (current) use of aspirin; I25.119 Atherosclerotic heart disease of native coronary artery with unspecified angina pectoris; Z95.5 Presence of coronary angioplasty implant and graft; I11.0 Hypertensive heart disease with heart failure; K21.9 Gastro-esophageal reflux disease without esophagitis; E78.5 Hyperlipidemia, unspecified; Z68.37 Body mass index [BMI] 37.0-37.9, adult; E66.01 Morbid (severe) obesity due to excess calories; Z79.52 Long term (current) use of systemic steroids; Z86.74 Personal history of sudden cardiac arrest; Z86.73 Personal history of transient ischemic attack (TIA), and cerebral infarction without residual deficits

== ENCOUNTER → 2018-05-18 | Outpatient (CLI) | payer OTHER ==
[~2018-05-18] MED LIST: APIX1TAB3 PO; CLOP1TAB5 PO; ERGO2000 PO; LSN/10125 PO; METO-452 PO; PRAV20TA PO; PRD20 PO; PRLSR20 PO
[2018-05-18 13:32] LABS: HEMOGLOBIN A1C 7.7 % (4.5-5.6)
[2018-05-21 22:31] LABS: ANTI-SS-A <1.0 NEG AI (<1.0 NEG); ANTI-SS-B <1.0 NEG AI (<1.0 NEG)
[2018-05-22 10:51] LABS: QUANTIF MITOGEN-NIL 0.41 IU/ML; QUANTIFERON INDETERMINATE (NEGATIVE); QUANTIFERON NIL 0.02 IU/ML
== END | disposition home or self-care (01) ==
LOC: C.LABPVFM 10:48
PROVIDERS: ATTEND Internal Medicine Rheumatology
DX: H34.8330 Tributary (branch) retinal vein occlusion, bilateral, with macular edema (principal)